=== PATIENT | male | born 1985 | race American Indian/Alaskan Native ===

== ENCOUNTER 2017-02-12 16:44 | Emergency (ER) | payer OTHER ==
[2017-02-12 16:53] VITALS: BP 110/74
--- NOTE | 2017-02-12 16:53 | Emergency Department Report ---
Chief Complaint: Nausea/Vomiting/Diarrhea Stated Complaint: N/V X 3 DAYS Time Seen by Provider: 02/12/17 16:49 - HPI History of Present Illness: PT states a week ago, he was playing football. PT states he took a hit and he has been having chest pain since. PT states for two days he has had N/V. PT reports intermittent abd pain - ROS Review of Systems: + chest wall pain + abd pain + n/v - Exam Physical Exam: pt looks well, non toxic gcs 15 steady gait no chest wall or abd tenderness MSE screening note: Focused history and physical exam performed. Due to findings the following was ordered: xr and labs ED Disposition for MSE Condition: Stable
[2017-02-12 17:10] LABS: Basophils % (Auto) 0.6 % (0.0-1.8); Eosinophils % (Auto) 0.6 % (0.0-4.3); Hematocrit 46.2 % (35.5-45.6); Hemoglobin 15.4 gm/dl (11.8-15.2); Mean Corpuscular HGB Conc 33 % (32-34); Mean Corpuscular Hemoglobin 29 pg (28-32); Mean Corpuscular Volume 88 fl (84-94); Platelet Count 278 K/mm3 (140-440); Red Blood Count 5.25 M/mm3 (3.65-5.03); Red Cell Distribution Width 13.8 % (13.2-15.2); White Blood Count 8.9 K/mm3 (4.5-11.0)
[2017-02-12 17:38] LABS: Alanine Aminotransferase 17 units/L (7-56); Albumin 4.8 g/dL (3.9-5); Albumin/Globulin Ratio 1.5 %; Alkaline Phosphatase 56 units/L (35-129); Anion Gap 16 mmol/L; Blood Urea Nitrogen 15 mg/dL (9-20); Calcium 9.7 mg/dL (8.4-10.2); Carbon Dioxide 29 mmol/L (22-30); Chloride 95.5 mmol/L (98-107); Glucose 67 mg/dL (75-100); Lipase 17 units/L (13-60); Potassium 3.7 mmol/L (3.6-5.0); Sodium 137 mmol/L (137-145); Total Protein 8.1 g/dL (6.3-8.2)
--- NOTE | 2017-02-13 07:40 | XRay Report ---
ROUTINE CHEST, TWO VIEWS: HISTORY: chest pain. The trachea, heart, mediastinal contour, lung bingham and bony thorax are unremarkable. IMPRESSION: Unremarkable chest x-ray.
--- NOTE | 2017-02-13 14:51 | ED Elopement Review ---
ED Pt Elopement review - Results review Lab results: Laboratory Tests 02/12/17 02/12/17 16:55 16:55 WBC 8.9 RBC 5.25 H Hgb 15.4 H Hct 46.2 H MCV 88 MCH 29 MCHC 33 RDW 13.8 Plt Count 278 Lymph % (Auto) 19.4 [place] % (Auto) 8.9 H Eos % (Auto) 0.6 Baso % (Auto) 0.6 Lymph # 1.7 [place] # 0.8 Eos # 0.1 Baso # 0.1 Seg Neutrophils % 70.5 H Seg Neutrophils # 6.3 Sodium 137 Potassium 3.7 Chloride 95.5 L Carbon Dioxide 29 Anion Gap 16 BUN 15 Creatinine 1.0 Estimated GFR > 60 BUN/Creatinine Ratio 15.00 Glucose 67 L Calcium 9.7 Total Bilirubin 1.20 AST 19 ALT 17 Alkaline Phosphatase 56 Total Protein 8.1 Albumin 4.8 Albumin/Globulin Ratio 1.5 Lipase 17 - Call Back decision Pt Call Back Decision: Pt to F/U with PMD
== END 2017-02-12 17:40 | disposition left against medical advice (07) ==
LOC: ED 16:44
DX: R11.2 Nausea with vomiting, unspecified (principal); Z53.21 Procedure and treatment not carried out due to patient leaving prior to being seen by health care provider
CPT/HCPCS: 36415; 71020; 80053; 83690; 85025